=== PATIENT | female | born 1940 | race Caucasian/White ===

== ENCOUNTER 2018-05-10 06:54 | Day surgery (SDC) | payer MEDICARE, OTHER ==
[2018-05-10] MEDS ORDERED: FENTAnyl 50 MCG/ML VIAL (07:35)
[2018-05-10] MEDS ORDERED: MIDAZOLAM 1 MG/ML 2 ML INJ (07:35)
[2018-05-10] MEDS ORDERED: PROPOFOL 20 ML (07:35)
[2018-05-10] MEDS ORDERED: EPHEDrine SULFATE 50 MG/5 ML SYG (07:51)
[2018-05-10] MEDS ORDERED: CEFAZOLIN 1 GM INJ (07:53)
[2018-05-10] MEDS: LIDOCAINE 1% (MPF) 30 ML INJ (08:07)
[2018-05-10] MEDS: BUPIVACAINE 0.25% (MPF) 30 ML INJ (08:08)
[2018-05-10] MEDS ORDERED: ONDANSETRON 4 MG INJ IV (09:30)
[2018-05-10] MEDS ORDERED: OXYCODONE/ACETAMINOPHEN (5/325) TAB PO ×2 (09:30)
[2018-05-10] MEDS ORDERED: HYDROmorphONE 1 MG/5 ML IV SYRINGE IV ×3 (09:30)
== END 2018-05-10 11:29 | disposition home or self-care (01) ==
LOC: SDS 06:54
DX: M20.42 Other hammer toe(s) (acquired), left foot (principal); M21.612 Bunion of left foot
CPT/HCPCS: 28298

== ENCOUNTER → 2018-12-18 | Outpatient (CLI) | payer MEDICARE, OTHER | END | disposition home or self-care (01) | LOC: HKI 11:09 | DX: Z47.1 Aftercare following joint replacement surgery (principal); M25.562 Pain in left knee; Z96.652 Presence of left artificial knee joint | CPT/HCPCS: 73564 ==